=== PATIENT | female | born 2000 | race Hispanic/Latino ===

== ENCOUNTER → 2019-01-16 | Outpatient (CLI) | payer OTHER ==
--- NOTE | 2019-01-17 16:29 | US ---
EXAM DESCRIPTION: Pelvis Transvaginal (accession [id number]), Pelvic,Non-OB (accession [id number]): Ultrasound. CLINICAL HISTORY: 18 years Female R10.31 COMPARISON: None. TECHNIQUE: Transcutaneous scanning through the urine filled bladder. Endovaginal scanning. Wilcox-scale and Doppler modes. FINDINGS: Uterus 8.8 x 5.2 x 4.3 cm. Estimated volume. Endometrial thickness 8.7 mm. The myometrium appears heterogeneous. The uterus is not retroverted. Cervix contains minimal fluid.. Cul-de-sac contains minimal fluid. Right ovary 3.6 x 2.8 x 1.8 cm. Estimated volume. Normal waveform and color Doppler vascularity. 1.9 x 1.8 x 1.8 cm simple follicle; no cysts. No adnexal mass or free fluid. Left ovary 2.3 x 1.8 x 1.5 cm. Estimated volume. Normal waveform and color Doppler vascularity. 1.1 cm simple follicle with no cysts. cysts. No adnexal mass or free fluid. IMPRESSION: 1. Normal position and size of uterus. No endometrial thickening. Minimal fluid in the cervix. Minimal fluid in the cul-de-sac. 2. Bilateral ovaries normal in size and vascularity. 1.9 cm simple follicle right ovary and 1.1 cm simple follicle left ovary. No cysts. No adnexal mass or free fluid. Electronically signed by: Alec Khanna MD 01/17/2019 4:27 PM CDT
--- NOTE | 2019-01-17 16:30 | US ---
EXAM DESCRIPTION: Pelvis Transvaginal (accession [id number]), Pelvic,Non-OB (accession [id number]): Ultrasound. CLINICAL HISTORY: 18 years Female R10.31 COMPARISON: None. TECHNIQUE: Transcutaneous scanning through the urine filled bladder. Endovaginal scanning. Wilcox-scale and Doppler modes. FINDINGS: Uterus 8.8 x 5.2 x 4.3 cm. Estimated volume. Endometrial thickness 8.7 mm. The myometrium appears heterogeneous. The uterus is not retroverted. Cervix contains minimal fluid.. Cul-de-sac contains minimal fluid. Right ovary 3.6 x 2.8 x 1.8 cm. Estimated volume. Normal waveform and color Doppler vascularity. 1.9 x 1.8 x 1.8 cm simple follicle; no cysts. No adnexal mass or free fluid. Left ovary 2.3 x 1.8 x 1.5 cm. Estimated volume. Normal waveform and color Doppler vascularity. 1.1 cm simple follicle with no cysts. cysts. No adnexal mass or free fluid. IMPRESSION: 1. Normal position and size of uterus. No endometrial thickening. Minimal fluid in the cervix. Minimal fluid in the cul-de-sac. 2. Bilateral ovaries normal in size and vascularity. 1.9 cm simple follicle right ovary and 1.1 cm simple follicle left ovary. No cysts. No adnexal mass or free fluid. Electronically signed by: Alec Khanna MD 01/17/2019 4:27 PM CDT
== END ==
LOC: US 14:06
PROVIDERS: ATTEND Nurse Practitioner Family
DX: N83.01 Follicular cyst of right ovary (principal); N83.02 Follicular cyst of left ovary

== ENCOUNTER 2019-02-16 21:22 | Emergency (ER) | payer OTHER ==
[2019-02-16] MEDS ORDERED: ONDANSETRON ODT 8 MG TAB SL ONE (21:40)
[2019-02-16] MEDS ORDERED: SODIUM CHLORIDE 0.9% 1000ML 1,000 ML IVS ONE (21:40)
--- NOTE | 2019-02-16 21:47 | ED.PDOC ---
History of Present Illness - General Chief Complaint: Abdominal Pain Stated Complaint: pain x 24 hours Time Seen by Provider: 02/16/19 21:40 Information Source: patient Exam Limitations: no limitations - History of Present Illness Initial Comments: patient is a 18-year-old at 6 weeks by stated EGA who presents with onset last night of abdominal cramping. Patient states the pain lasts for only a minute or 2 but comes and goes and she's had multiple episodes throughout the day. Patient estimates she's had maybe 20 episodes of the pain. Patient has had nausea and vomiting for the past couple of weeks due to the and is not keeping much down. She has had a normal bowel movement today and denies any diarrhea. She does not have any heartburn or reflux. She states that anytime she eats she throws up and so she can't tell if that's making the pain worse as that's been ongoing for the past several weeks. Patient denies any vaginal bleeding. Patient otherwise is healthy and has no past medical history. Her only surgery was her prior . She has no known drug allergies. Patient does not currently take medications with the exception of [id number] Tylenol for the pain. Abdominal Pain Onset Location: periumbilical Pain Radiation: no radiation Quality: moderate, cramping Timing/Duration: 7-24 hours Improving Factors: nothing Worsening Factors: eating Associated Symptoms: nausea/vomiting Review of Systems - Review of Systems Constitutional: States: no symptoms reported. Denies: chills, fever EENTM: States: no symptoms reported. Denies: eye pain, ear pain, nose congestion, throat pain Respiratory: States: no symptoms reported. Denies: cough, short of breath Cardiology: States: no symptoms reported. Denies: chest pain, edema, palpitations Gastrointestinal/Abdominal: States: abdominal pain, nausea, vomiting. Denies: constipation, diarrhea Genitourinary: States: no symptoms reported. Denies: discharge, dysuria, frequency, hematuria Family Medical History - Family History Mother Family History: Unknown Physical Exam - Physical Exam General Appearance: Alert, Anxious, No apparent distress Eyes, Ears, Nose, Throat Exam: PERRL/EOMI, normal ENT inspection, TMs normal Neck: non-tender, full range of motion, supple, normal inspection Respiratory: chest non-tender, lungs clear, normal breath sounds, no respiratory distress Cardiovascular/Chest: normal peripheral pulses, regular rate, rhythm, no edema, no gallop, no JVD, no murmur Peripheral Pulses: No deficit Gastrointestinal/Abdominal: soft, tenderness - diffusely with no rebound or guarding no RUQ pain/meyer sign negative Back Exam: no CVA tenderness Extremity: non-tender Neurologic: alert, oriented x 3 Progress - Progress Progress: 02/16/19 22:53 patient continues to have cramping but no vaginal bleeding and no worsening or emesis since arrival. Trial of vistaril and will have her follow up on Tuesday with OB. Return to ER for increase pain, bleeding, intractable emesis. - Results/Orders Results/Orders: 02/16/19 21:40 Sodium Chloride 0.9% 1000ML [Ns 1000 ml] 1,000 ml IVS ONCE Laboratory Results WBC 4.9 K/mm3 (4.8-10.8) 02/16/19 21:40 RBC 4.66 M/mm3 (4.20-5.40) 02/16/19 21:40 Hgb 14.0 gm/dL (12.0-16.0) 02/16/19 21:40 Hct 41.7 % (36.0-47.0) 02/16/19 21:40 MCV 89.5 fl (81.0-99.0) 02/16/19 21:40 MCH 30.1 pg (27.0-31.0) 02/16/19 21:40 MCHC 33.6 g/dL (33.0-37.0) 02/16/19 21:40 RDW 14.3 % (11.5-14.5) 02/16/19 21:40 Plt Count 187 K/mm3 (130-400) 02/16/19 21:40 MPV 9.4 fl (7.40-10.4) 02/16/19 21:40 Absolute Neuts (auto) 3.50 K/uL (1.8-6.8) 02/16/19 21:40 Absolute Lymphs (auto) 0.90 K/uL (1.0-3.4) L 02/16/19 21:40 Absolute Monos (auto) 0.40 K/uL (0.2-0.8) 02/16/19 21:40 Absolute Eos (auto) 0.00 K/uL (0.0-0.4) 02/16/19 21:40 Absolute Basos (auto) 0.00 K/uL (0.0-0.1) 02/16/19 21:40 Neutrophils % 71.2 % (42.0-78.0) 02/16/19 21:40 Lymphocytes % 19.2 % (20.0-50.0) L 02/16/19 21:40 Monocytes % 8.6 % (2.0-9.0) 02/16/19 21:40 Eosinophils % 0.4 % (1.0-5.0) L 02/16/19 21:40 Basophils % 0.6 % (0.0-2.0) 02/16/19 21:40 Sodium 136 mmol/L (135-145) 02/16/19 21:40 Potassium 3.3 mmol/L (3.6-5.0) L 02/16/19 21:40 Chloride 105 mmol/L (101-111) 02/16/19 21:40 Carbon Dioxide 22 mmol/L (21-31) 02/16/19 21:40 Anion Gap 12.3 (12-18) 02/16/19 21:40 BUN 7 mg/dL (7-18) 02/16/19 21:40 Creatinine 0.51 mg/dL (0.6-1.3) L 02/16/19 21:40 BUN/Creatinine Ratio 13.7 (10-20) 02/16/19 21:40 Random Glucose 95 mg/dL (70-105) 02/16/19 21:40 Serum Osmolality 269.7 mOsm/L (275-295) L 02/16/19 21:40 Calcium 8.4 mg/dL (8.4-10.2) 02/16/19 21:40 Total Bilirubin 0.6 mg/dL (0.2-1.0) 02/16/19 21:40 AST 21 IU/L (10-42) 02/16/19 21:40 ALT 19 IU/L (10-60) 02/16/19 21:40 Alkaline Phosphatase 58 IU/L (180-700) L 02/16/19 21:40 Serum Total Protein 7.2 gm/dL (6.4-8.2) 02/16/19 21:40 Albumin 3.7 g/dl (3.2-5.5) 02/16/19 21:40 Globulin 3.5 gm/dL (2.3-3.5) 02/16/19 21:40 Albumin/Globulin Ratio 1.1 (1.1-1.9) 02/16/19 21:40 Urine Color Yellow (Yellow) 02/16/19 21:57 Urine Appearance Clear (Clear) 02/16/19 21:57 Urine pH 6.5 (4.5-7.8) 02/16/19 21:57 Ur Specific [place] >= 1.030 (1.005-1.030) 02/16/19 21:57 Urine Protein 30 mg/dL 02/16/19 21:57 Urine Glucose (UA) Negative mg/dL (Negative) 02/16/19 21:57 Urine Ketones Negative mg/dL (NEGATIVE) 02/16/19 21:57 Urine Blood Negative (Negative) 02/16/19 21:57 Urine Nitrite Negative 02/16/19 21:57 Urine Bilirubin Small (NEGATIVE) H 02/16/19 21:57 Urine Urobilinogen 4.0 mg/dL (0.2-1.0) H 02/16/19 21:57 Ur Leukocyte Esterase Negative (Negative) 02/16/19 21:57 Urine RBC 0-1 /hpf 02/16/19 21:57 Urine WBC 1-3 /hpf 02/16/19 21:57 Ur Epithelial Cells 3-5 /hpf 02/16/19 21:57 Urine Bacteria Rare 02/16/19 21:57 Urine Mucus Moderate 02/16/19 21:57 Departure - Departure Clinical Impression: Abdominal pain Qualifiers: Abdominal location: generalized Qualified Code(s): R10.84 - Generalized abdominal pain Disposition: Discharge to Home or Self Care Condition: Fair Departure Forms: ED Discharge - Pt. Copy, Patient Portal Self Enrollment Instructions: DI for Abdominal Pain-Adult Diet: bland diet Referrals: BRE NICOLAS [Primary Care Provider] - 1-2 Weeks Prescriptions: hydrOXYzine PAMOATE [Vistaril] 25 mg PO QID PRN #15 cap PRN Reason: Abdominal Cramping Home Medications: Ambulatory Orders Vit W/ Ferrous Fumara [] 1 tab PO DAILY 02/16/19 hydrOXYzine PAMOATE [Vistaril] 25 mg PO QID PRN #15 cap 02/16/19 Additional Instructions: Trial of vistaril and will have her follow up on Tuesday with OB. Return to ER for increase pain, bleeding, intractable emesis.
[2019-02-16 21:51] VITALS: O2SAT 99
[2019-02-16 22:26] VITALS: BP 121/80
[2019-02-16] MEDS ORDERED: hydrOXYzine PAMOATE 25 MG CAP PO ONE (22:52)
[2019-02-16 23:04] VITALS: TEMP 98.1
== END 2019-02-16 22:58 | disposition home or self-care (01) ==
LOC: ER 21:22
DX: O99.89 Other specified diseases and conditions complicating pregnancy, childbirth and the puerperium (principal); R10.84 Generalized abdominal pain; O21.0 Mild hyperemesis gravidarum; Z3A.01 Less than 8 weeks gestation of pregnancy